=== PATIENT | female | born 1980 | race Hispanic/Latino ===

== ENCOUNTER 2024-02-14 11:57 | Emergency (ER) | payer SELFPAY ==
[2024-02-14] MEDS ORDERED: HYDROcodone/Acetaminophen 5/325 mg Tablet ONE (12:12)
== END 2024-02-14 12:24 | disposition home or self-care (01) ==
LOC: BURERS 11:57
DX: K08.89 Other specified disorders of teeth and supporting structures (principal); Z55.6 Problems related to health literacy
CPT/HCPCS: 99282